=== PATIENT | female | born 1965 | race Caucasian/White ===

== ENCOUNTER 2018-03-05 19:25 | Emergency (ER) | payer OTHER ==
[~2018-03-05] VITALS: Ht 160 cm; Wt 71.8 kg
[~2018-03-05 19:25] MED LIST: ALAVERT10 MG PO; CARBATROL-ER200 MG PO; CARBATROL300 MG PO; DIAZEPAM10 MG PO; KEPPRA1000 MG PO; LEVOTHROID,S0.075 MG PO; MULTIVITAMIN1 EAC2 PO; OYSTER SHELL C1 EACH PO; SENOKOT,SENN1 TABLET PO; TOPAMAX200 MG PO; TRIAZOLAM0.25 MG PO
[2018-03-05 21:35] VITALS: BP 144/77
== END 2018-03-05 21:37 | disposition home or self-care (01) ==
LOC: EME 19:25 → EXP 19:25
DX: R22.41 Localized swelling, mass and lump, right lower limb (principal); G40.909 Epilepsy, unspecified, not intractable, without status epilepticus; B19.10 Unspecified viral hepatitis B without hepatic coma
CPT/HCPCS: 93971; 99281; 99283